=== PATIENT | female | born 1960 | race Two or more races ===

== ENCOUNTER 2020-09-03 06:42 | Day surgery (SDC) | payer OTHER | END 2020-09-03 13:45 | disposition home or self-care (01) | LOC: AMB-ENDOS 06:42 | PROVIDERS: ATTEND Colon & Rectal Surgery | DX: D12.2 Benign neoplasm of ascending colon (principal); K64.8 Other hemorrhoids ==

== ENCOUNTER 2021-03-11 07:38 | Day surgery (SDC) | payer OTHER | END 2021-03-11 15:05 | disposition home or self-care (01) | LOC: AMB-ENDOS 07:38 | PROVIDERS: ATTEND Colon & Rectal Surgery | DX: D12.3 Benign neoplasm of transverse colon (principal); D12.4 Benign neoplasm of descending colon; K64.8 Other hemorrhoids; Z20.822 Contact with and (suspected) exposure to COVID-19 ==